=== PATIENT | male | born 1960 | race African-American/Black ===

== ENCOUNTER 2017-02-11 15:57 | Emergency (ER) | payer OTHER ==
[~2017-02-11] VITALS: Ht 180.3 cm; Wt 75.0 kg
[~2017-02-11 15:57] MED LIST: TRAM50TA3 PO
[2017-02-11 16:13] VITALS: BP 116/86
== END 2017-02-11 17:49 | disposition left against medical advice (07) ==
LOC: ER 16:03
DX: Z53.21 Procedure and treatment not carried out due to patient leaving prior to being seen by health care provider (principal)

== ENCOUNTER 2017-10-17 15:00 | Emergency (ER) | payer OTHER ==
[~2017-10-17] VITALS: Ht 180.3 cm; Wt 82.0 kg
[2017-10-17] MEDS ORDERED: SODIUM CHLORIDE 0.9% 1,000 ML IV ONE (15:17)
[2017-10-17] MEDS ORDERED: LEVETIRACETAM 500MG PREMIX 100 ML IV ONE (15:30)
[2017-10-17 16:04] LABS: BASOPHILS % 0.8 % (0.0-2.0); EOSINOPHILS % 0.9 % (0.0-5.0); HEMOGLOBIN. 14.1 g/dL (14.0-18.0); LYMPHOCYTES % 12.7 % (20.0-50.0); MEAN CORPUSCULAR HEMOGLOBIN 27.9 pg (28.0-32.0); MEAN CORPUSCULAR VOLUME 86.8 fL (80.0-94.0); MEAN PLATELET VOLUME 7.7 fl (7.4-10.4); MONOCYTES % 6.8 % (2.0-8.0); NEUTROPHILS % 78.8 % (40.0-76.0); PLATELET 260 x1000/uL (130-400); RED BLOOD CELL COUNT 5.07 mill/uL (4.7-6.1); RED CELL DISTRIBUTION WIDTH 14.1 % (11.6-14.6)
[2017-10-17 16:12] LABS: CARBON DIOXIDE 28 mEq/L (21-32); CHLORIDE 103 mEq/L (98-107)
[2017-10-17 16:21] LABS: ETHANOL BLOOD 71 mg/dL
[2017-10-17 16:24] LABS: CARBAMAZEPINE < 0.5 ug/mL (4-12); PHENOBARBITAL < 2.1 ug/mL (15.0-40.0); VALPROIC ACID < 3.0 ug/mL (50-100)
[2017-10-18 06:30] VITALS: BP 118/64
== END 2017-10-18 08:16 | disposition home or self-care (01) ==
LOC: ER 15:03
DX: R56.9 Unspecified convulsions (principal); F10.129 Alcohol abuse with intoxication, unspecified
CPT/HCPCS: 36415; 80053; 80156; 80165; 80184; 80185; 85025; 96365; 99285; G0482; J1953; J7030; Z7610

== ENCOUNTER 2017-12-22 00:36 | Emergency (ER) | payer OTHER ==
[~2017-12-22] VITALS: Ht 182.9 cm; Wt 82.0 kg
[2017-12-22] MEDS ORDERED: LEVETIRACETAM 500MG PREMIX 100 ML IV ONE (01:00)
[2017-12-22 01:26] LABS: BASOPHILS % 0.7 % (0.0-2.0); EOSINOPHILS % 3.4 % (0.0-5.0); HEMATOCRIT. 41.8 % (42.0-52.0); HEMOGLOBIN. 13.7 g/dL (14.0-18.0); LYMPHOCYTES % 23.7 % (20.0-50.0); MEAN CORPUSCULAR HEMOGLOBIN 28.2 pg (28.0-32.0); MEAN CORPUSCULAR VOLUME 86.3 fL (80.0-94.0); MEAN PLATELET VOLUME 7.2 fl (7.4-10.4); MONOCYTES % 10.3 % (2.0-8.0); NEUTROPHILS % 61.9 % (40.0-76.0); PLATELET 256 x1000/uL (130-400); RED BLOOD CELL COUNT 4.85 mill/uL (4.7-6.1); RED CELL DISTRIBUTION WIDTH 13.9 % (11.6-14.6)
[2017-12-22 01:27] LABS: CHLORIDE 100 mEq/L (98-107)
[2017-12-22 01:33] LABS: ETHANOL BLOOD 12 mg/dL
[2017-12-22 06:57] VITALS: BP 125/77
== END 2017-12-22 07:02 | disposition home or self-care (01) ==
LOC: ER 00:41
DX: T40.1X1A Poisoning by heroin, accidental (unintentional), initial encounter (principal); R56.9 Unspecified convulsions; F10.20 Alcohol dependence, uncomplicated; Y92.89 Other specified places as the place of occurrence of the external cause
CPT/HCPCS: 36415; 80053; 85025; 96365; 99284; G0482; J1953

== ENCOUNTER 2018-01-23 12:09 | Emergency (ER) | payer OTHER ==
[~2018-01-23] VITALS: Ht 175.3 cm; Wt 80.0 kg
[2018-01-23 15:40] VITALS: BP 127/62
== END 2018-01-23 15:53 | disposition home or self-care (01) ==
LOC: ER 12:09
DX: T40.601A Poisoning by unspecified narcotics, accidental (unintentional), initial encounter (principal); R41.82 Altered mental status, unspecified; F11.10 Opioid abuse, uncomplicated; Y92.89 Other specified places as the place of occurrence of the external cause; R03.0 Elevated blood-pressure reading, without diagnosis of hypertension
CPT/HCPCS: 99283

== ENCOUNTER 2019-03-31 15:09 | Emergency (ER) | payer SELFPAY ==
[~2019-03-31] VITALS: Ht 177.8 cm; Wt 79.0 kg
[2019-03-31 15:30] VITALS: BP 150/90
== END 2019-03-31 16:20 | disposition left against medical advice (07) ==
LOC: ER 15:09
DX: T40.1X1A Poisoning by heroin, accidental (unintentional), initial encounter (principal); R56.9 Unspecified convulsions; Z87.891 Personal history of nicotine dependence; Z59.0 Homelessness; Y92.89 Other specified places as the place of occurrence of the external cause
CPT/HCPCS: 99283

== ENCOUNTER 2019-08-16 19:01 | Emergency (ER) | payer OTHER ==
[~2019-08-16] VITALS: Ht 162.6 cm; Wt 60.0 kg
[2019-08-16 20:13] VITALS: BP 112/78
== END 2019-08-16 21:50 | disposition home or self-care (01) ==
LOC: ER 19:01
DX: F10.129 Alcohol abuse with intoxication, unspecified (principal); Y90.9 Presence of alcohol in blood, level not specified; F11.10 Opioid abuse, uncomplicated
CPT/HCPCS: 99283

== ENCOUNTER 2019-09-12 16:50 | Emergency (ER) | payer OTHER ==
[~2019-09-12] VITALS: Ht 175.3 cm; Wt 69.0 kg
[2019-09-12 20:50] VITALS: BP 142/82
== END 2019-09-12 20:51 | disposition home or self-care (01) ==
LOC: ER 16:50
DX: B85.0 Pediculosis due to Pediculus humanus capitis (principal); F17.290 Nicotine dependence, other tobacco product, uncomplicated; F16.10 Hallucinogen abuse, uncomplicated
CPT/HCPCS: 99282

== ENCOUNTER 2019-10-02 21:35 | Inpatient (IN) | payer OTHER ==
[~2019-10-02] VITALS: Ht 180.3 cm; Wt 65.3 kg
[2019-10-02] MEDS ORDERED: SODIUM CHLORIDE 0.9% 1,000 ML IV ONE (22:30)
[2019-10-03] VITALS (8 sets, daily range): BP systolic 119–133; BP diastolic 70–84
[2019-10-03 00:12] LABS: BASOPHILS % 0.8 % (0.0-2.0); EOSINOPHILS % 3.1 % (0.0-5.0); HEMATOCRIT. 39.1 % (42.0-52.0); HEMOGLOBIN. 12.7 g/dL (14.0-18.0); MEAN CORPUSCULAR HEMOGLOBIN 28.6 pg (28.0-32.0); MEAN CORPUSCULAR VOLUME 87.8 fL (80.0-94.0); MEAN PLATELET VOLUME 7.5 fl (7.4-10.4); MONOCYTES % 14.3 % (2.0-8.0); NEUTROPHILS % 49.8 % (40.0-76.0); PLATELET 265 x1000/uL (130-400); RED BLOOD CELL COUNT 4.45 mill/uL (4.7-6.1); RED CELL DISTRIBUTION WIDTH 14.4 % (11.6-14.6)
[2019-10-03 00:14] LABS: CHLORIDE 108 mEq/L (98-107)
[2019-10-03 02:17] LABS: CLARITY URINE CLEAR (CLEAR); COLOR URINE YELLOW (YELLOW); KETONES URINE NEGATIVE (NEGATIVE); LEUKOCYTE ESTERASE URINE NEGATIVE (NEGATIVE); NITRITE URINE POSITIVE (NEGATIVE); OCCULT BLOOD URINE NEGATIVE (NEGATIVE); PROTEIN URINE NEGATIVE (NEGATIVE); SPECIFIC GRAVITY URINE 1.023 (1.005-1.030); UROBILINOGEN URINE 0.2 E.U./dL (0.2-1.0)
[2019-10-03 02:26] LABS: *BENZODIAZEPINES SCREEN URINE NEGATIVE (NEGATIVE); *COCAINE SCREEN URINE NEGATIVE (NEGATIVE); CANNABINOID URINE SCREEN NEGATIVE (NEGATIVE); METHADONE URINE SCREEN NEGATIVE (NEGATIVE); OPIATES URINE SCREEN PRESUMTIVE POSITIVE (NEGATIVE); PHENCYCLIDINE URINE SCREEN NEGATIVE (NEGATIVE)
[2019-10-03 02:27] LABS: *AMPHETAMINES SCREEN URINE PRESUMTIVE POSITIVE (NEGATIVE); *BARBITURATES SCREEN URINE NEGATIVE (NEGATIVE)
[2019-10-03] MEDS ORDERED: CEFTRIAXONE 1 G PREMIX 50 ML IV ONE (07:15)
[2019-10-03 07:59] LABS: BG BASE EXCESS -0.5 mmol/L (-2.0-2.0); BG BILEVEL POS AIRWAY PRESSURE 15/5; BG CARBOXYHEMOGLOBIN 2.1 % (0.5-1.5); BG DEOXYHEMOGLOBIN 1.2 % (0.0-5.0); BG FRACTION INSPIRED OXYGEN 100; BG HCO3 ACT 26.1 mmol/L (22.0-26.0); BG METHEMOGLOBIN 0.3 % (0.0-1.5); BG OXYGEN SATURATION 98.8 % (92.0-98.5); BG OXYHEMOGLOBIN 96.4 % (94.0-97.0); BG PCO2 50.1 mmHg (35.0-45.0); BG PH 7.334 (7.350-7.450); BG PO2 144.7 mmHg (75.0-100.0); BG SAMPLE SITE RIGHT RADIAL; BG TOTAL HEMOGLOBIN 14.5 g/dL (12.0-18.0); BG VENT MODE MASK - BIPAP; BG VENT RATE 14 set
[2019-10-03] MEDS ORDERED: ONDANSETRON HCL 4MG/2ML INJ IV PRN (08:45)
[2019-10-03] MEDS ORDERED: ACETAMINOPHEN 325MG TABLET PO PRN (08:45)
[2019-10-03] MEDS ORDERED: IPRATROPIUM/ALBUTEROL 0.5-3(2.5)MG/3ML NEB HHN PRN (08:45)
[2019-10-03] MEDS ORDERED: OSELTAMIVIR 75MG CAPSULE PO ONE (09:00)
[2019-10-03] MEDS: AZITHROMYCIN 500 MG in DEXT 5% WATER 250 ML IV SCH ×2 (09:46→09:52)
[2019-10-03] MEDS: IPRATROPIUM/ALBUTEROL 0.5-3(2.5)MG/3ML NEB HHN SCH ×3 (12:41→20:00)
[2019-10-03] MEDS: OSELTAMIVIR 75MG CAPSULE PO SCH ×2 (12:55→20:07)
[2019-10-03] MEDS: ENOXAPARIN 40MG/0.4ML SYR SUBCUT SCH (12:56)
[2019-10-03] MEDS: DEXT 5%/0.45% NACL 1000ML 1,000 ML IV SCH (12:56)
[2019-10-03] MEDS: FOLIC ACID 1 MG, THIAMINE HCL 100 MG, MVI, ADULT NO.1 10 ML in DEXTROSE 5% WATER 1,000 ML IV SCH ×4 (14:33)
[2019-10-03] MEDS: AMMONIUM LACTATE 12% LOTION 240ML TOP SCH (16:38)
[2019-10-03] MEDS ORDERED: ZOLPIDEM TARTRATE 5MG TABLET PO PRN (20:15)
[2019-10-04] VITALS (12 sets, daily range): BP systolic 112–158; BP diastolic 63–86
[2019-10-04] MEDS: IPRATROPIUM/ALBUTEROL 0.5-3(2.5)MG/3ML NEB HHN SCH ×6 (00:38→20:46)
[2019-10-04] MEDS: DEXT 5%/0.45% NACL 1000ML 1,000 ML IV SCH ×3 (05:37→17:45)
[2019-10-04 06:23] LABS: HEMATOCRIT. 36.6 % (42.0-52.0); HEMOGLOBIN. 11.5 g/dL (14.0-18.0); MEAN CORPUSCULAR HEMOGLOBIN 27.2 pg (28.0-32.0); MEAN CORPUSCULAR VOLUME 86.8 fL (80.0-94.0); MEAN PLATELET VOLUME 8.1 fl (7.4-10.4); PLATELET 241 x1000/uL (130-400); RED BLOOD CELL COUNT 4.22 mill/uL (4.7-6.1); RED CELL DISTRIBUTION WIDTH 14.3 % (11.6-14.6)
[2019-10-04 06:32] LABS: CHLORIDE 104 mEq/L (98-107)
[2019-10-04] MEDS: OSELTAMIVIR 75MG CAPSULE PO SCH ×2 (08:16→20:37)
[2019-10-04] MEDS: AZITHROMYCIN 500 MG TABLET PO SCH (08:17)
[2019-10-04] MEDS: AMMONIUM LACTATE 12% LOTION 240ML TOP SCH ×2 (08:17→17:45)
[2019-10-04] MEDS ORDERED: CEFTRIAXONE 1 G PREMIX 50 ML IV SCH (09:00)
[2019-10-04 09:46] LABS: PLATELET ESTIMATE NORMAL
[2019-10-04] MEDS: ENOXAPARIN 40MG/0.4ML SYR SUBCUT SCH (12:20)
[2019-10-04] MEDS: FOLIC ACID 1 MG, THIAMINE HCL 100 MG, MVI, ADULT NO.1 10 ML in DEXTROSE 5% WATER 1,000 ML IV SCH ×4 (14:48)
[2019-10-05] VITALS (8 sets, daily range): BP systolic 144–163; BP diastolic 76–90
[2019-10-05] MEDS: IPRATROPIUM/ALBUTEROL 0.5-3(2.5)MG/3ML NEB HHN SCH ×3 (00:51→08:16)
[2019-10-05 07:12] LABS: HEMATOCRIT. 36.4 % (42.0-52.0); HEMOGLOBIN. 12.1 g/dL (14.0-18.0); MEAN CORPUSCULAR HEMOGLOBIN 28.4 pg (28.0-32.0); MEAN CORPUSCULAR VOLUME 85.9 fL (80.0-94.0); PLATELET 269 x1000/uL (130-400); RED BLOOD CELL COUNT 4.24 mill/uL (4.7-6.1); RED CELL DISTRIBUTION WIDTH 14.5 % (11.6-14.6)
[2019-10-05 07:28] LABS: CHLORIDE 106 mEq/L (98-107)
[2019-10-05] MEDS: OSELTAMIVIR 75MG CAPSULE PO SCH (08:37)
[2019-10-05] MEDS: AZITHROMYCIN 500 MG TABLET PO SCH (08:38)
[2019-10-05] MEDS: AMMONIUM LACTATE 12% LOTION 240ML TOP SCH (08:38)
[2019-10-05] MEDS ORDERED: CEFTRIAXONE 1 G PREMIX 50 ML IV SCH (10:00)
[2019-10-05 10:23] LABS: PLATELET ESTIMATE NORMAL
[2019-10-05] MEDS: DEXT 5%/0.45% NACL 1000ML 1,000 ML IV SCH (11:12)
[2019-10-05] MEDS: ENOXAPARIN 40MG/0.4ML SYR SUBCUT SCH (11:53)
== END 2019-10-05 12:31 | disposition home or self-care (01) | DRG 720 ==
LOC: ER 21:35 → EDBEDREQ 10-03 07:06 → 3WST 10-03 07:22 → EDBEDREQ 10-03 07:27 → ENRESERV 10-03 09:42
PROVIDERS: ADMIT Internal Medicine; ATTEND Internal Medicine
PROC: 5A09357 Assistance with Respiratory Ventilation, Less than 24 Consecutive Hours, Continuous Positive Airway Pressure (ICD-10-PCS; principal; 2019-10-03)
DX: A41.89 Other specified sepsis (principal); J96.00 Acute respiratory failure, unspecified whether with hypoxia or hypercapnia; J10.00 Influenza due to other identified influenza virus with unspecified type of pneumonia; E87.8 Other disorders of electrolyte and fluid balance, not elsewhere classified; J44.0 Chronic obstructive pulmonary disease with (acute) lower respiratory infection; D64.9 Anemia, unspecified; F12.90 Cannabis use, unspecified, uncomplicated; F17.210 Nicotine dependence, cigarettes, uncomplicated; F15.10 Other stimulant abuse, uncomplicated; F11.10 Opioid abuse, uncomplicated; F10.129 Alcohol abuse with intoxication, unspecified; G40.909 Epilepsy, unspecified, not intractable, without status epilepticus; I10 Essential (primary) hypertension; Z71.41 Alcohol abuse counseling and surveillance of alcoholic; Z71.51 Drug abuse counseling and surveillance of drug abuser
CPT/HCPCS: 36415; 36600; 71045; 80048; 80305; 80320; 81003; 82375; 82805; 83880; 84484; 87804; 93005; 94660; 99291; J0456; J0696; J1650; J3411; J3490; J7030; J7060; J7070; J7620; G0480

== ENCOUNTER 2019-10-22 11:00 | Emergency (ER) | payer OTHER ==
[~2019-10-22] VITALS: Ht 172.7 cm; Wt 85.0 kg
[2019-10-22 13:07] LABS: BASOPHILS % 0.7 % (0.0-2.0); HEMATOCRIT. 37.9 % (42.0-52.0); HEMOGLOBIN. 12.4 g/dL (14.0-18.0); MEAN CORPUSCULAR HEMOGLOBIN 28.2 pg (28.0-32.0); MEAN CORPUSCULAR VOLUME 86.4 fL (80.0-94.0); MEAN PLATELET VOLUME 6.5 fl (7.4-10.4); MONOCYTES % 9.4 % (2.0-8.0); NEUTROPHILS % 76.9 % (40.0-76.0); PLATELET 386 x1000/uL (130-400); RED BLOOD CELL COUNT 4.38 mill/uL (4.7-6.1); RED CELL DISTRIBUTION WIDTH 15.1 % (11.6-14.6)
[2019-10-22 13:17] LABS: CHLORIDE 105 mEq/L (98-107)
[2019-10-22 13:19] LABS: ETHANOL BLOOD < 10 mg/dL
[2019-10-22 14:50] VITALS: BP 112/72
== END 2019-10-22 15:55 | disposition home or self-care (01) ==
LOC: ER 11:00
DX: T40.601A Poisoning by unspecified narcotics, accidental (unintentional), initial encounter (principal); R55 Syncope and collapse; Y92.89 Other specified places as the place of occurrence of the external cause
CPT/HCPCS: 36415; 70450; 71045; 80053; 80307; 80320; 80329; 82962; 83690; 85025; 93005; 99284; Z7610; G0480

== ENCOUNTER 2019-10-27 18:27 | Inpatient (IN) | payer OTHER ==
[~2019-10-27] VITALS: Ht 185.4 cm; Wt 76.9 kg
[2019-10-27 23:53] LABS: BASOPHILS % 0.8 % (0.0-2.0); EOSINOPHILS % 12.3 % (0.0-5.0); HEMOGLOBIN. 12.7 g/dL (14.0-18.0); LYMPHOCYTES % 20.9 % (20.0-50.0); MEAN CORPUSCULAR HEMOGLOBIN 28.4 pg (28.0-32.0); MEAN CORPUSCULAR VOLUME 87.2 fL (80.0-94.0); MONOCYTES % 14.1 % (2.0-8.0); NEUTROPHILS % 51.9 % (40.0-76.0); PLATELET 333 x1000/uL (130-400); RED BLOOD CELL COUNT 4.47 mill/uL (4.7-6.1); RED CELL DISTRIBUTION WIDTH 14.7 % (11.6-14.6)
[2019-10-27 23:59] LABS: CHLORIDE 101 mEq/L (98-107)
[2019-10-28 00:04] LABS: ETHANOL BLOOD < 10 mg/dL
[2019-10-28] MEDS ORDERED: ASPIRIN 325MG EC TABLET PO ONE (01:00)
[2019-10-28] MEDS ORDERED: FOLIC ACID 1 MG, THIAMINE HCL 100 MG, MVI, ADULT NO.1 10 ML in DEXTROSE 5% WATER 1,000 ML IV SCH ×8 (10:45→11:00)
[2019-10-28 21:33] VITALS: BP 143/91
[2019-10-28 22:00] VITALS: BP_SYST 115; BP_SYST 143; BP_DIAS 63; BP_DIAS 91
[2019-10-28] MEDS ORDERED: LORAZEPAM 2MG/ML CPJ IV PRN (22:15)
[2019-10-28] MEDS: LEVETIRACETAM 500MG TABLET PO SCH (22:16)
[2019-10-28] MEDS ORDERED: INFLUENZA VIRUS VACCINE(AFLURIA) 0.5ML SYR IM ONE (23:45)
[2019-10-28] MEDS ORDERED: PNEUMOCOCCAL 23-VAL P-SAC VAC 0.5 ML IM ONE (23:45)
[2019-10-29] VITALS (12 sets, daily range): BP systolic 104–149; BP diastolic 57–97
[2019-10-29 06:20] LABS: HEMATOCRIT. 38.2 % (42.0-52.0); HEMOGLOBIN. 12.7 g/dL (14.0-18.0); MEAN CORPUSCULAR HEMOGLOBIN 28.8 pg (28.0-32.0); MEAN CORPUSCULAR VOLUME 86.2 fL (80.0-94.0); MEAN PLATELET VOLUME 7.2 fl (7.4-10.4); PLATELET 335 x1000/uL (130-400); RED BLOOD CELL COUNT 4.43 mill/uL (4.7-6.1); RED CELL DISTRIBUTION WIDTH 14.5 % (11.6-14.6)
[2019-10-29 07:02] LABS: CHLORIDE 104 mEq/L (98-107)
[2019-10-29] MEDS ORDERED: ASPIRIN 81MG TABLET PO SCH (09:00)
[2019-10-29] MEDS: LEVETIRACETAM 500MG TABLET PO SCH ×2 (09:18→21:42)
[2019-10-29] MEDS: ENOXAPARIN 40MG/0.4ML SYR SUBCUT SCH (09:18)
[2019-10-29] MEDS: ASPIRIN 81MG EC TABLET PO SCH (09:18)
[2019-10-29] MEDS: FOLIC ACID 1 MG, THIAMINE HCL 100 MG, MVI, ADULT NO.1 10 ML in DEXTROSE 5% WATER 1,000 ML IV SCH ×4 (09:19)
[2019-10-29] MEDS ORDERED: AMLODIPINE 2.5MG TABLET PO SCH (11:30)
[2019-10-29 14:22] LABS: PLATELET ESTIMATE NORMAL
[2019-10-30] VITALS (7 sets, daily range): BP systolic 121–160; BP diastolic 72–90
[2019-10-30 04:25] LABS: CLARITY URINE CLEAR (CLEAR); COLOR URINE YELLOW (YELLOW); KETONES URINE NEGATIVE (NEGATIVE); LEUKOCYTE ESTERASE URINE TRACE (NEGATIVE); NITRITE URINE POSITIVE (NEGATIVE); OCCULT BLOOD URINE NEGATIVE (NEGATIVE); PH URINE 7.5 (4.5-8.0); PROTEIN URINE NEGATIVE (NEGATIVE); SPECIFIC GRAVITY URINE 1.009 (1.005-1.030)
[2019-10-30 04:38] LABS: *AMPHETAMINES SCREEN URINE NEGATIVE (NEGATIVE); *BARBITURATES SCREEN URINE NEGATIVE (NEGATIVE); *BENZODIAZEPINES SCREEN URINE NEGATIVE (NEGATIVE)
[2019-10-30 04:39] LABS: *COCAINE SCREEN URINE NEGATIVE (NEGATIVE); CANNABINOID URINE SCREEN NEGATIVE (NEGATIVE); METHADONE URINE SCREEN NEGATIVE (NEGATIVE); OPIATES URINE SCREEN PRESUMTIVE POSITIVE (NEGATIVE); PHENCYCLIDINE URINE SCREEN NEGATIVE (NEGATIVE)
[2019-10-30 07:58] LABS: EOSINOPHILS % 7.3 % (0.0-5.0); HEMATOCRIT. 39.5 % (42.0-52.0); HEMOGLOBIN. 13.4 g/dL (14.0-18.0); LYMPHOCYTES % 16.6 % (20.0-50.0); MEAN CORPUSCULAR HEMOGLOBIN 28.9 pg (28.0-32.0); MEAN CORPUSCULAR VOLUME 85.4 fL (80.0-94.0); MEAN PLATELET VOLUME 6.9 fl (7.4-10.4); MONOCYTES % 10.5 % (2.0-8.0); NEUTROPHILS % 64.6 % (40.0-76.0); PLATELET 369 x1000/uL (130-400); RED BLOOD CELL COUNT 4.63 mill/uL (4.7-6.1); RED CELL DISTRIBUTION WIDTH 14.6 % (11.6-14.6)
[2019-10-30 08:10] LABS: CHLORIDE 107 mEq/L (98-107)
[2019-10-30] MEDS: FOLIC ACID 1 MG, THIAMINE HCL 100 MG, MVI, ADULT NO.1 10 ML in DEXTROSE 5% WATER 1,000 ML IV SCH ×4 (08:20)
[2019-10-30] MEDS: LEVETIRACETAM 500MG TABLET PO SCH (08:39)
[2019-10-30] MEDS: ASPIRIN 81MG EC TABLET PO SCH (08:39)
[2019-10-30] MEDS: ENOXAPARIN 40MG/0.4ML SYR SUBCUT SCH (08:39)
== END 2019-10-30 11:30 | disposition home or self-care (01) | DRG 190 ==
LOC: ER 18:27 → 3WST 10-28 01:04 → ENRESERV 10-28 19:38
PROVIDERS: ADMIT Internal Medicine; ATTEND Internal Medicine
DX: I21.4 Non-ST elevation (NSTEMI) myocardial infarction (principal); G93.40 Encephalopathy, unspecified; E87.1 Hypo-osmolality and hyponatremia; I11.9 Hypertensive heart disease without heart failure; I45.10 Unspecified right bundle-branch block; J44.9 Chronic obstructive pulmonary disease, unspecified; I49.1 Atrial premature depolarization; F10.229 Alcohol dependence with intoxication, unspecified; G40.909 Epilepsy, unspecified, not intractable, without status epilepticus; F15.90 Other stimulant use, unspecified, uncomplicated; J10.1 Influenza due to other identified influenza virus with other respiratory manifestations; D63.8 Anemia in other chronic diseases classified elsewhere; F17.210 Nicotine dependence, cigarettes, uncomplicated; Z79.82 Long term (current) use of aspirin; Z86.73 Personal history of transient ischemic attack (TIA), and cerebral infarction without residual deficits; Z59.0 Homelessness; Z87.01 Personal history of pneumonia (recurrent)
CPT/HCPCS: 36415; 71045; 80048; 80053; 80305; 80320; 81003; 84484; 85025; 90686; 90732; 93005; 93306; 96365; 97162; 99291; J1650; J2060; J3411; J3490; J7070; G0480

== ENCOUNTER 2020-01-07 19:17 | Emergency (ER) | payer OTHER ==
[~2020-01-07] VITALS: Ht 175.3 cm; Wt 80.0 kg
[2020-01-07] MEDS ORDERED: FOLIC ACID 1 MG, THIAMINE HCL 100 MG, MVI, ADULT NO.1 10 ML in DEXTROSE 5% WATER 1,000 ML IV ONE ×4 (20:15)
[2020-01-07 21:01] LABS: CHLORIDE 103 mEq/L (98-107)
[2020-01-07 21:04] LABS: BASOPHILS % 0.6 % (0.0-2.0); EOSINOPHILS % 0.9 % (0.0-5.0); HEMATOCRIT. 39.1 % (42.0-52.0); HEMOGLOBIN. 12.9 g/dL (14.0-18.0); LYMPHOCYTES % 11.1 % (20.0-50.0); MEAN CORPUSCULAR HEMOGLOBIN 28.7 pg (28.0-32.0); MEAN CORPUSCULAR VOLUME 86.5 fL (80.0-94.0); MEAN PLATELET VOLUME 7.4 fl (7.4-10.4); MONOCYTES % 14.5 % (2.0-8.0); NEUTROPHILS % 72.9 % (40.0-76.0); PLATELET 212 x1000/uL (130-400); RED BLOOD CELL COUNT 4.52 mill/uL (4.7-6.1); RED CELL DISTRIBUTION WIDTH 15.2 % (11.6-14.6)
[2020-01-07 21:06] LABS: ETHANOL BLOOD 41 mg/dL
[2020-01-08 03:25] VITALS: BP 140/70
== END 2020-01-08 03:26 | disposition home or self-care (01) ==
LOC: ER 19:17
DX: T40.1X1A Poisoning by heroin, accidental (unintentional), initial encounter (principal); R55 Syncope and collapse; Y92.480 Sidewalk as the place of occurrence of the external cause; F10.229 Alcohol dependence with intoxication, unspecified; Y90.2 Blood alcohol level of 40-59 mg/100 ml
CPT/HCPCS: 36415; 71045; 80053; 80320; 85025; 93005; 96365; 99285; J3411; J3490; J7070; G0480

== ENCOUNTER 2020-02-16 14:42 | Emergency (ER) | payer OTHER ==
[~2020-02-16] VITALS: Ht 188 cm; Wt 70.0 kg
[2020-02-16] MEDS ORDERED: ONDANSETRON HCL 4MG/2ML INJ IV ONE (15:00)
[2020-02-16] MEDS ORDERED: NALOXONE HCL 1 MG/ML 2ML VIAL IV ONE (15:00)
[2020-02-16 16:10] LABS: HEMATOCRIT. 42.6 % (42.0-52.0); HEMOGLOBIN. 13.8 g/dL (14.0-18.0); MEAN CORPUSCULAR HEMOGLOBIN 28.7 pg (28.0-32.0); MEAN CORPUSCULAR VOLUME 88.6 fL (80.0-94.0); MEAN PLATELET VOLUME 6.9 fl (7.4-10.4); PLATELET 293 x1000/uL (130-400); RED BLOOD CELL COUNT 4.81 mill/uL (4.7-6.1); RED CELL DISTRIBUTION WIDTH 15.3 % (11.6-14.6)
[2020-02-16 16:28] LABS: CHLORIDE 105 mEq/L (98-107)
[2020-02-16 16:35] LABS: PLATELET ESTIMATE NORMAL
[2020-02-16] MEDS: SODIUM CHLORIDE 0.9% 1,000 ML IV ONE ×2 (16:49→16:50)
[2020-02-16 20:30] VITALS: BP 144/99
== END 2020-02-16 20:32 | disposition home or self-care (01) ==
LOC: ER 14:53
DX: T40.2X1A Poisoning by other opioids, accidental (unintentional), initial encounter (principal); Y92.89 Other specified places as the place of occurrence of the external cause; R00.0 Tachycardia, unspecified
CPT/HCPCS: 36415; 80048; 84484; 85025; 93005; 96374; 99285; J2310; J2405; J7030